=== PATIENT | female | born 2000 | race African-American/Black ===

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

== ENCOUNTER 2021-03-17 17:41 | Emergency (ER) | payer MEDICAID, OTHER ==
[~2021-03-17] VITALS: Ht 160 cm; Wt 73.0 kg
[2021-03-17 18:18] VITALS: BP 145/83
[2021-03-17] MEDS ORDERED: EMTRICITABINE 200MG CAPSULE PO ONE (18:30)
[2021-03-17] MEDS ORDERED: DIPHENHYDRAMINE 25MG CAPSULE PO ONE (18:30)
[2021-03-17] MEDS ORDERED: RALTEGRAVIR 400MG TABLET PO SCH ×3 (18:30→20:00)
[2021-03-17] MEDS ORDERED: TENOFOVIR 300MG TABLET PO ONE ×2 (18:30→20:00)
[2021-03-17 19:37] LABS: BASOPHILS % 0.3 % (0.0-2.0); HEMATOCRIT. 38.6 % (36.0-48.0); HEMOGLOBIN. 13.3 g/dL (12.0-16.0); LYMPHOCYTES % 14.3 % (20.0-50.0); MEAN CORPUSCULAR HEMOGLOBIN 29.9 pg (28.0-32.0); MEAN CORPUSCULAR VOLUME 86.6 fL (81.0-99.0); MEAN PLATELET VOLUME 8.4 fl (7.4-10.4); MONOCYTES % 5.2 % (2.0-8.0); NEUTROPHILS % 80.2 % (40.0-76.0); PLATELET 241 x1000/uL (130-400); RED BLOOD CELL COUNT 4.45 mill/uL (4.2-5.4)
[2021-03-17 19:45] LABS: CHLORIDE 108 mEq/L (98-107)
[2021-03-17 19:52] LABS: CLARITY URINE CLEAR (CLEAR); COLOR URINE YELLOW (YELLOW); KETONES URINE 2+ (NEGATIVE); LEUKOCYTE ESTERASE URINE 1+ (NEGATIVE); NITRITE URINE POSITIVE (NEGATIVE); OCCULT BLOOD URINE 3+ (NEGATIVE); PH URINE >=9.0 (4.5-8.0); PROTEIN URINE 1+ (NEGATIVE); SPECIFIC GRAVITY URINE 1.025 (1.005-1.030); UROBILINOGEN URINE 0.2 E.U./dL (0.2-1.0)
[2021-03-17 19:58] LABS: METHADONE URINE SCREEN NEGATIVE (NEGATIVE); OPIATES URINE SCREEN NEGATIVE (NEGATIVE); PHENCYCLIDINE URINE SCREEN NEGATIVE (NEGATIVE)
[2021-03-17 19:59] LABS: *BARBITURATES SCREEN URINE NEGATIVE (NEGATIVE); *BENZODIAZEPINES SCREEN URINE NEGATIVE (NEGATIVE); *COCAINE SCREEN URINE NEGATIVE (NEGATIVE)
[2021-03-17 20:00] LABS: *AMPHETAMINES SCREEN URINE PRESUMTIVE POSITIVE (NEGATIVE); CANNABINOID URINE SCREEN PRESUMTIVE POSITIVE (NEGATIVE)
[2021-03-17 20:15] LABS: HEPATITIS B SURFACE ANTIGEN NEGATIVE
[2021-03-17] MEDS ORDERED: AZITHROMYCIN 500 MG TABLET PO NR (20:15)
[2021-03-17] MEDS ORDERED: CEFTRIAXONE SODIUM 500 MG/VIAL IM NR (20:15)
[2021-03-17 20:28] LABS: BASOPHILS % 0.4 % (0.0-2.0); HEMATOCRIT. 38.5 % (36.0-48.0); LYMPHOCYTES % 14.7 % (20.0-50.0); MEAN CORPUSCULAR HEMOGLOBIN 29.4 pg (28.0-32.0); MEAN CORPUSCULAR VOLUME 87.1 fL (81.0-99.0); MEAN PLATELET VOLUME 8.4 fl (7.4-10.4); MONOCYTES % 6.4 % (2.0-8.0); NEUTROPHILS % 78.5 % (40.0-76.0); PLATELET 243 x1000/uL (130-400); RED BLOOD CELL COUNT 4.43 mill/uL (4.2-5.4); RED CELL DISTRIBUTION WIDTH 13.2 % (11.6-14.6)
[2021-03-17] MEDS ORDERED: EMTRICITABINE 200MG CAPSULE PO NR (20:45)
[2021-03-17] MEDS ORDERED: DIPH25CA83 MT (21:15)
[2021-03-17] MEDS ORDERED: RALT400T MT (21:15)
[2021-03-17] MEDS ORDERED: EMTR200C3 MT (21:15)
[2021-03-17] MEDS ORDERED: VIRE MT (21:15)
[2021-03-17] MEDS ORDERED: LEVO1.5T7 MT (21:15)
[2021-03-17 21:50] LABS: HEPATITIS A AB IGM NEGATIVE (NEGATIVE)
[2021-03-20 04:09] LABS: NEISSERIA GONORRHOEAE NAA Negative (Negative)
== END 2021-03-17 21:33 | disposition home or self-care (01) ==
LOC: ER 17:41
DX: T74.21XA Adult sexual abuse, confirmed, initial encounter (principal); T43.623A Poisoning by amphetamines, assault, initial encounter; N39.0 Urinary tract infection, site not specified; F12.10 Cannabis abuse, uncomplicated; Z98.890 Other specified postprocedural states; Y92.89 Other specified places as the place of occurrence of the external cause
CPT/HCPCS: 36415; 80053; 80305; 81003; 81025; 85025; 86703; 86705; 86709; 86803; 87340; 87491; 87591; 96372; 99284; J0696; Q0163